=== PATIENT | female | born 1990 | race Caucasian/White ===

== ENCOUNTER 2018-07-18 17:15 | Emergency (ER) | payer OTHER ==
[~2018-07-18] VITALS: Ht 157.5 cm; Wt 51.3 kg
[2018-07-18 17:20] VITALS: BP 114/77
--- NOTE | 2018-07-18 17:27 | NUR ---
PT AMBULATED TO ER BED 09
--- NOTE | 2018-07-18 17:31 | NUR ---
27 Y/O M BIB MOTHER WITH C/O VOMITING SINCE YESTERDAY. + NAUSEA, + DIARRHEA, LOWER BACK PAIN. PT STATES SHE IS 8WEEKS . [id number]. SKIN IS INTACT, PINK/WARM/DRY; AAOX4, PERRL, WITH EVEN AND STEADY GAIT; LUNGS CLEAR BL, BREATHING UNLABORED; HR EVEN AND REGULAR, BL PERIPHERAL PULSES PRESENT; BS ACTIVE X4PT DENIES ANY FEVER, CP, SOB, OR COUGH AT THIS TIME; PT STATES 7/10 PAIN AT THIS TIME; VSS; PATIENT POSITIONED FOR COMFORT; HOB ELEVATED; BEDRAILS UP X2; BED DOWN. PMH: ENDOMETRIOSIS RX: NONE
[2018-07-18] MEDS ORDERED: NACL 0.9% 1,000 ML IV ONE (18:30)
[2018-07-18 18:48] LABS: BASOPHILS # (AUTO) 0.1 K/uL (0.00-0.22); BASOPHILS % (AUTO) 0.9 % (0.0-2.0); EOSINOPHILS # (AUTO) 0.2 K/uL (0-0.4); EOSINOPHILS % (AUTO) 1.9 % (0.0-4.0); HEMATOCRIT 40.9 % (36-48); LYMPHOCYTES # (AUTO) 2.3 K/uL (2.5-16.5); LYMPHOCYTES % (AUTO) 21.9 % (20.5-51.1); MEAN CORPUSCULAR HEMOGLOBIN 31 pg (27-31); MEAN CORPUSCULAR HGB CONC 34 g/dL (33-37); MEAN CORPUSCULAR VOLUME 89.8 fL (80-94); MONOCYTES # (AUTO) 0.7 K/uL (0.8-1.0); MONOCYTES % (AUTO) 6.9 % (1.7-9.3); NEUTROPHILS # (AUTO) 7.2 K/uL (1.8-7.7); NEUTROPHILS % (AUTO) 68.4 % (42.2-75.2); PLATELET COUNT (AUTO) 239 K/uL (140-450); RED BLOOD CELL COUNT(AUTO) 4.56 MIL/uL (4.20-5.40); RED CELL DISTRIBUTION WIDTH 13.3 % (11.6-13.7); WHITE BLOOD COUNT (AUTO) 10.5 K/uL (4.8-10.8)
[2018-07-18 18:56] LABS: APPEARANCE,URINE CLEAR (CLEAR); BILIRUBIN,URINE NEGATIVE (NEGATIVE); BLOOD, URINE NEGATIVE (NEGATIVE); COLOR,URINE YELLOW (YELLOW); LEUKOCYTE ESTERASE ,URINE NEGATIVE (NEGATIVE); NITRITE, URINE NEGATIVE (NEGATIVE); PH,URINE 7.5 (5.0-9.0); UGLUCOSE 1+ (NEGATIVE)
--- NOTE | 2018-07-18 19:09 | NUR ---
REPORT GIVEN TO LORENA ISRAEL AT THIS TIME.
[2018-07-18 19:12] LABS: ALBUMIN 3.9 g/dL (3.4-5.0); ANION GAP 10.6 (8-16); CARBON DIOXIDE 27.9 mmol/L (21-32); CREATININE 0.6 mg/dL (0.6-1.3); POTASSIUM 3.5 mmol/L (3.5-5.1); TOTAL BILIRUBIN 0.6 mg/dL (0.0-1.0)
--- NOTE | 2018-07-18 19:15 | NUR ---
PT CAME BACK FROM [place]. PT TOLERATED WELL. PT STATED HER IV WAS HURTING, D/C IV AND INITIALED A NEW ONE. PT TOLERATED WELL. PT HAS NO ABD PAIN AT THIS TIME. COMFORT MEASURES OFFERED. PT TOLERATED WELL. ER MADE AWARE OF STATUS.
[2018-07-18 21:10] VITALS: BP 118/69
--- NOTE | 2018-07-18 21:10 | NUR ---
Patient discharged with v/s stable. Written and verbal after care instructions given and explained. Patient verbalized understanding. Ambulatory with steady gait. All questions addressed prior to discharge. Advised to follow up with PMD.
--- NOTE | 2018-07-20 07:42 | NUR ---
Late entry. Confirmed with RN that 1000 ml IV bolus of 0.9NS was given and completed at 1945.
== END 2018-07-18 21:10 | disposition home or self-care (01) ==
LOC: MED 17:15
DX: O26.891 Other specified pregnancy related conditions, first trimester (principal); M54.5 Low back pain; E86.0 Dehydration; Z3A.08 8 weeks gestation of pregnancy
CPT/HCPCS: 36415; 76801; 80053; 81003; 81025; 84702; 85025; 87804; 96360; 99284; J7030; Q0092; 96361

== ENCOUNTER 2019-02-10 17:41 | Observation (INO) | payer OTHER ==
[~2019-02-10] VITALS: Ht 160 cm; Wt 67.1 kg
[2019-02-10] MEDS ORDERED: PREN-380 PO (17:52)
[2019-02-10 18:01] VITALS: BP 109/62
== END 2019-02-10 19:06 | disposition home or self-care (01) ==
LOC: MLD 17:41
PROVIDERS: ADMIT Obstetrics & Gynecology; ATTEND Obstetrics & Gynecology
DX: O26.893 Other specified pregnancy related conditions, third trimester (principal); R10.30 Lower abdominal pain, unspecified; Z3A.37 37 weeks gestation of pregnancy
CPT/HCPCS: 81000; G0378

== ENCOUNTER 2019-09-05 15:52 | Emergency (ER) | payer OTHER ==
[~2019-09-05] VITALS: Ht 154.9 cm; Wt 61.2 kg
[~2019-09-05 15:52] MED LIST: PREN-380 PO
[2019-09-05 16:12] VITALS: BP 109/67
--- NOTE | 2019-09-05 16:12 | NUR ---
28 Y/O F C/C COUGH X 1 DAY. PER PT WORKS AT [employer] NAMED [employer]OUNT [employer] AND CONCERN IF GOT COVID INFECTED FROM WORK. PT DENIES ANY CONTACT WITH ANY POSITIVE COVIDS. PT TAKEN OTC RX XL3 FOR COUGH RELIEF. PT DENIES ANY SOB AND/OR FEVER. ALLERGIES PNC. NO HX. NO RX. NO N/V/D. PT RESTING IN BED, WITH NO DISTRESS. SIDE RAIL X1.
[2019-09-05 17:17] VITALS: BP 109/67
--- NOTE | 2019-09-05 17:17 | NUR ---
Patient discharged with v/s stable. Written and verbal after care instructions given and explained. Patient alert, oriented and verbalized understanding of instructions. Ambulatory with steady gait. All questions addressed prior to discharge. ID band removed. Patient advised to follow up with PMD. Rx of TESSALON given. Patient educated on indication of medication including possible reaction and side effects. Opportunity to ask questions provided and answered. D/C BY DR LYONS
== END 2019-09-05 17:01 | disposition home or self-care (01) ==
LOC: MED 15:52
DX: B34.9 Viral infection, unspecified (principal); Z88.0 Allergy status to penicillin; Z79.899 Other long term (current) drug therapy
CPT/HCPCS: 99283